=== PATIENT | female | born 1965 | race Caucasian/White ===

== ENCOUNTER 2017-11-08 18:05 | Emergency (ER) | payer OTHER ==
[~2017-11-08] VITALS: Ht 165.1 cm; Wt 54.4 kg
[~2017-11-08 18:05] MED LIST: AMITRIPTYLINE H50 M2 GT; AMOXICILLIN 50500 MG PO; BUTALB-APAP-CA1 EACH PO; CRESTOR10 MG PO; DARVOCET-N 1001 EACH PO; FLAGYL500 MG PO; FLEXERIL PO; GUAIFEN-CODEIN120 ML PO; LOMOTIL TABLET1 EACH PO; MOBIC15 MG PO; MUCINEX TA600 MG/TA2 PO; NORCO 5-325 TA1 EACH PO; PROPRANOLOL 1010 MG PO; PROZAC20 MG PO; RIZATRIPTAN10 MG PO; ROBAXIN 750 MG750 M1 PO; TRAMADOL 50 MG50 MG PO; ZESTRIL5 MG PO; ZOFRAN ODT4 MG DISSOLVE
[2017-11-08] MEDS ORDERED: BENTYL 20 MG TA20 M1 PO (18:15)
[2017-11-08] MEDS ORDERED: CRESTOR5 MG PO (18:15)
[2017-11-08] MEDS ORDERED: NORCO 5-325 TA1 EAC1 PO (18:29)
[2017-11-08 18:39] VITALS: BP 129/88
== END 2017-11-08 18:40 | disposition home or self-care (01) ==
LOC: M.ERS 18:05
DX: S46.911A Strain of unspecified muscle, fascia and tendon at shoulder and upper arm level, right arm, initial encounter (principal); I10 Essential (primary) hypertension; G43.909 Migraine, unspecified, not intractable, without status migrainosus; E78.00 Pure hypercholesterolemia, unspecified; F17.200 Nicotine dependence, unspecified, uncomplicated; X58.XXXA Exposure to other specified factors, initial encounter; Y93.89 Activity, other specified; Y92.89 Other specified places as the place of occurrence of the external cause; Y99.8 Other external cause status

== ENCOUNTER 2018-12-26 13:19 | Emergency (ER) | payer OTHER ==
[~2018-12-26] VITALS: Ht 165.1 cm; Wt 54.4 kg
[~2018-12-26 13:19] MED LIST changes: -AMITRIPTYLINE H50 M2 GT; +AMITRIPTYLINE H50 M2 PO; +BENTYL 20 MG TA20 M1 PO; +CRESTOR5 MG PO; +NORCO 5-325 TA1 EAC1 PO
[2018-12-26 13:46] VITALS: BP 120/66
[2018-12-26] MEDS ORDERED: RIZATRIPTAN10 M1 PO (13:51)
[2018-12-26] MEDS ORDERED: NAPROSYN500 MG PO (13:55)
[2018-12-26] MEDS ORDERED: MEDROLDOSEPACK PO (13:55)
[2018-12-26] MEDS ORDERED: ROBAXIN 750 MG750 M1 PO (13:55)
== END 2018-12-26 14:06 | disposition home or self-care (01) ==
LOC: M.ERS 13:19
DX: M54.16 Radiculopathy, lumbar region (principal); I10 Essential (primary) hypertension; G43.909 Migraine, unspecified, not intractable, without status migrainosus; E78.00 Pure hypercholesterolemia, unspecified; F17.200 Nicotine dependence, unspecified, uncomplicated

== ENCOUNTER 2019-02-08 13:12 | Emergency (ER) | payer OTHER ==
[~2019-02-08] VITALS: Ht 165.1 cm; Wt 53.4 kg
[~2019-02-08 13:12] MED LIST changes: +MEDROLDOSEPACK PO; +NAPROSYN500 MG PO; +RIZATRIPTAN10 M1 PO
[2019-02-08] MEDS ORDERED: ZOFRAN ODT4 MG PO (13:22)
[2019-02-08 14:15] LABS: ABSOLUTE EOSINOPHILS 0.1 thou/uL (0.0-0.7); ABSOLUTE LYMPHOCYTES 1.3 thou/uL (0.8-5.3); ABSOLUTE MONOCYTES 0.4 thou/uL (0.0-1.2); BASOPHILS 0.5 %; EOSINOPHILS 1.4 %; HEMATOCRIT 36.8 % (37.0-47.0); HEMOGLOBIN 12.6 gm/dL (12.0-15.0); LYMPHOCYTES 18.7 %; MCH 30.9 pg (26.0-34.0); MCHC 34.1 g/dL (28.0-37.0); MCV 90.7 fL (80.0-100.0); MONOCYTES 5.8 %; MPV 7.4 fl. (7.2-11.1); NUCLEATED RBCS 0 /100WBC; PLATELET COUNT* 175 thou/uL (150-400); POLYS 73.6 %; RBC 4.06 mil/uL (4.20-5.00); RDW-CV 13.3 % (10.5-14.5); WBC 6.8 thou/uL (4.0-11.0)
[2019-02-08 14:44] LABS: ALBUMIN 3.9 g/dL (3.4-5.0); ALKALINE PHOSPHATASE 124 U/L (46-116); ANION GAP 5 mmol/L (7-16); BUN 19 mg/dL (7-18); CALCIUM 10.2 mg/dL (8.5-10.1); CHLORIDE 101 mmol/L (98-107); CO2 31 mmol/L (21-32); CREATININE 1.3 mg/dL (0.6-1.3); GLUCOSE 103 mg/dL (70-99); LIPASE 150 U/L (73-393); POTASSIUM 3.9 mmol/L (3.5-5.1); SGOT 14 U/L (15-37); SGPT 17 U/L (30-65); SODIUM 137 mmol/L (136-145); TOTAL BILIRUBIN 0.3 mg/dL (<0.1-1.0); TOTAL PROTEIN 7.9 g/dL (6.4-8.2); TROPONIN-I LEVEL <0.06 ng/mL (<0.06)
[2019-02-08 15:26] LABS: URINE BILIRUBIN NEGATIVE (Negative); URINE BLOOD NEGATIVE (Negative); URINE CLARITY CLEAR; URINE COLOR YELLOW; URINE GLUCOSE-RANDOM NEGATIVE (Negative); URINE KETONES NEGATIVE (Negative); URINE LEUKOCYTES-REFLEX TRACE (Negative); URINE NITRITE-REFLEX NEGATIVE (Negative); URINE PROTEIN NEGATIVE (Negative); URINE UROBILINOGEN 0.2 E.U./dl (0.2-1.0)
[2019-02-08 15:38] LABS: SQUAMOUS >10 Many /LPF (0-3)
[2019-02-08 15:39] LABS: BACTERIA-REFLEX 1-9 Few /HPF (None Seen); CRYSTALS None Seen /LPF (None Seen); HYALINE CASTS 0-3 Few /LPF (None Seen); MUCUS None Seen strn/LPF (None Seen); URINE RBC None Seen /HPF (0-2); URINE WBC-REFLEX 0-5 Rare /HPF (0-5)
[2019-02-08] MEDS ORDERED: ONDANSETRON HCL4 M2 PO (16:14)
[2019-02-08 16:26] VITALS: BP 129/74
--- NOTE | 2019-02-08 16:42 | EKG ---
[place] [address] ELECTROCARDIOGRAM REPORT Name: MANISHA LO Room: [facility]#: [id number] Admission: 02/08/19 Attend Phys: Discharge: 02/08/19 Date of : 69 Report #: [id number] THIS REPORT FOR: //name// [facility] ED Test Date: 2019-02-08 Test Time: 13:51:14 Pat Name: MANISHA LO Department: Room: Gender: F [address] Freight: DANNY : 1965 Requested By: Denae Romeo Order Number: [id number] MD: Blake Vo Measurements Intervals [place] Rate: 84 P: 92 [place]: 128 QRS: 88 QRSD: 79 T: 74 QT: 354 QTc: 419 Interpretive Statements Sinus rhythm Biatrial enlargement Anteroseptal infarct, old Compared to ECG 04/13/2015 22:52:15 Atrial abnormality now present Myocardial infarct finding now present Ventricular premature complex(es) no longer present Left bundle-branch block no longer present Electronically Signed On 02-08-2019 16:42:16 CDT by Blake Vo [email or web address] <ELECTRONICALLY SIGNED> By: Blake Vo MD, FAC 02/08/19 1642 1351 1351 Blake Vo MD, [facility] /EPI
== END 2019-02-08 16:27 | disposition home or self-care (01) ==
LOC: M.ERS 13:12
PROVIDERS: Nurse Practitioner Family
DX: K52.9 Noninfective gastroenteritis and colitis, unspecified (principal); J43.9 Emphysema, unspecified; R53.1 Weakness; I10 Essential (primary) hypertension; G43.909 Migraine, unspecified, not intractable, without status migrainosus; F17.210 Nicotine dependence, cigarettes, uncomplicated; Z98.890 Other specified postprocedural states

== ENCOUNTER 2021-10-06 16:34 | Inpatient (IN) | payer OTHER ==
[~2021-10-06] VITALS: Ht 165.1 cm; Wt 49.4 kg
[~2021-10-06 16:34] MED LIST changes: +ONDANSETRON HCL4 M2 PO; +ZOFRAN ODT4 MG PO
[2021-10-06 16:47] VITALS: BP 103/54
[2021-10-06] MEDS ORDERED: ZESTRIL5 MG PO (16:49)
[2021-10-06] MEDS ORDERED: AMITRIPTYLINE H75 M2 PO (16:49)
[2021-10-06 17:19] LABS: HEMATOCRIT 42.7 % (37.0-47.0); HEMOGLOBIN 14.6 gm/dL (12.0-15.0); MCH 30.8 pg (26.0-34.0); MCHC 34.2 g/dL (28.0-37.0); MCV 90.1 fL (80.0-100.0); MPV 8.1 fl. (7.2-11.1); NUCLEATED RBCS 0 /100WBC; PLATELET COUNT* 146 thou/uL (150-400); RBC 4.74 mil/uL (4.20-5.00); RDW-CV 13.3 % (10.5-14.5)
[2021-10-06 17:29] LABS: CALCIUM 8.6 mg/dL (8.5-10.1); CREATININE 2.2 mg/dL (0.6-1.3); POTASSIUM 4.3 mmol/L (3.5-5.1)
[2021-10-06 17:34] LABS: ALBUMIN 2.9 g/dL (3.4-5.0); TOTAL BILIRUBIN 0.4 mg/dL (<0.1-1.0); TOTAL PROTEIN 7.8 g/dL (6.4-8.2)
[2021-10-06 17:41] LABS: INFLUENZA A ANTIGEN Negative (Negative); INFLUENZA B ANTIGEN Negative (Negative)
[2021-10-06 17:57] LABS: ABSOLUTE LYMPHOCYTES 0.7 thou/uL (0.8-5.3); ABSOLUTE MONOCYTES 0.3 thou/uL (0.0-1.2); PLATELET ESTIMATE ADEQUATE
[2021-10-06 22:30] VITALS: BP 96/46
[2021-10-07 02:30] VITALS: BP 108/52
[2021-10-07 06:25] VITALS: BP 135/83
--- NOTE | 2021-10-07 10:39 | EKG ---
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 : 1965 Requested By: Oseas Parks Order Number: [id number] MD: Sameer Ambrose Measurements Intervals [place] Rate: 114 P: 87 VT: 91 QRS: 89 QRSD: 99 T: 69 QT: 299 QTc: 412 Interpretive Statements Sinus tachycardia Atrial premature complexes Right atrial enlargement Minimal ST depression, inferior leads Compared to ECG 02/08/2019 13:51:14 Atrial premature complex(es) now present ST (T wave) deviation now present Sinus rhythm no longer present Myocardial infarct finding no longer present Electronically Signed On 10-07-2021 10:38:51 [employer]OR SERVICES TECHNICIAN by Sameer Ambrose [email or web address] <ELECTRONICALLY SIGNED> By: Sunshine Ambrose MD, [facility] 10/07/21 1038 [id number] 165 Sunshine Ambrose MD, [facility] /EPI
[2021-10-07 11:48] VITALS: BP 110/72
[2021-10-07 15:39] VITALS: BP 137/68
[2021-10-07 20:00] VITALS: BP 116/70
[2021-10-08 07:17] LABS: ABSOLUTE LYMPHOCYTES 0.7 thou/uL (0.8-5.3); ABSOLUTE MONOCYTES 0.3 thou/uL (0.0-1.2); ABSOLUTE NEUTROPHILS 8.1 thou/uL (1.6-8.1); BASOPHILS 0.5 %; LYMPHOCYTES 7.5 %; MCH 30.4 pg (26.0-34.0); MCV 89.4 fL (80.0-100.0); MONOCYTES 3.7 %; MPV 7.5 fl. (7.2-11.1); NUCLEATED RBCS 0 /100WBC; PLATELET COUNT* 175 thou/uL (150-400); POLYS 88.3 %; RBC 4.13 mil/uL (4.20-5.00); RDW-CV 13.8 % (10.5-14.5); WBC 9.2 thou/uL (4.0-11.0)
[2021-10-08 07:28] LABS: HEMOGLOBIN 12.6 gm/dL (12.0-15.0)
[2021-10-08 07:36] LABS: APTT 31.8 Seconds (25.0-31.3); INR 1.1; PROTIME 10.9 Seconds (9.20-11.50)
[2021-10-08 07:42] LABS: ALBUMIN 2.2 g/dL (3.4-5.0); MAGNESIUM 1.8 mg/dL (1.8-2.4); PHOSPHORUS* 2.6 mg/dL (2.5-4.9); POTASSIUM 4.5 mmol/L (3.5-5.1); TOTAL BILIRUBIN 0.3 mg/dL (<0.1-1.0); TOTAL PROTEIN 6.5 g/dL (6.4-8.2)
[2021-10-08 07:46] LABS: CREATININE 0.9 mg/dL (0.6-1.3)
[2021-10-08 08:15] VITALS: BP 124/67; BP 130/86
[2021-10-08 10:06] LABS: ESR (SEDRATE) 98 mm/hr (0-30)
[2021-10-08 10:39] VITALS: BP 130/86
[2021-10-08 12:00] VITALS: BP 129/84
[2021-10-08 13:45] VITALS: BP 138/69; BP 140/70; BP 142/68
[2021-10-08 16:00] VITALS: BP 140/86
[2021-10-08 20:05] VITALS: BP 154/89
[2021-10-09] VITALS: BP 139/88
[2021-10-09 04:00] VITALS: BP 144/89
[2021-10-09 08:50] VITALS: BP 124/87
[2021-10-09 10:39] LABS: ABSOLUTE LYMPHOCYTES 0.4 thou/uL (0.8-5.3); ABSOLUTE MONOCYTES 0.4 thou/uL (0.0-1.2); ABSOLUTE NEUTROPHILS 6.4 thou/uL (1.6-8.1); BASOPHILS 0.1 %; HEMATOCRIT 36.2 % (37.0-47.0); HEMOGLOBIN 12.1 gm/dL (12.0-15.0); LYMPHOCYTES 5.9 %; MCH 30.7 pg (26.0-34.0); MCHC 33.5 g/dL (28.0-37.0); MCV 91.6 fL (80.0-100.0); MONOCYTES 5.6 %; MPV 7.4 fl. (7.2-11.1); NUCLEATED RBCS 0 /100WBC; PLATELET COUNT* 209 thou/uL (150-400); POLYS 88.4 %; RBC 3.95 mil/uL (4.20-5.00); RDW-CV 13.6 % (10.5-14.5); WBC 7.2 thou/uL (4.0-11.0)
[2021-10-09 10:45] LABS: ALBUMIN 2.4 g/dL (3.4-5.0); CALCIUM 9.1 mg/dL (8.5-10.1); CREATININE 0.7 mg/dL (0.6-1.3); TOTAL BILIRUBIN 0.4 mg/dL (<0.1-1.0); TOTAL PROTEIN 6.8 g/dL (6.4-8.2)
[2021-10-09 12:37] VITALS: BP 137/94
[2021-10-09] MEDS ORDERED: PREDNISONE 10 M10 MG PO (13:22)
[2021-10-09] MEDS ORDERED: PROAIR HFA8.5 GM INH (13:22)
[2021-10-09] MEDS ORDERED: TESSALON PERLE100 MG PO (13:22)
[2021-10-09] MEDS ORDERED: LEVOFLOXACIN500 MG PO (13:22)
[2021-10-09 16:15] VITALS: BP 131/96
[2021-10-09 16:48] VITALS: BP 131/96
== END 2021-10-09 17:55 | disposition home or self-care (01) | DRG 177 ==
LOC: M.ERS 16:34 → M.TBA-ER 18:26 → M.ORTHSURG 18:26
PROVIDERS: Emergency Medicine Emergency Medical Services; Internal Medicine; ADMIT Internal Medicine; ATTEND Internal Medicine
PROC: XW13325 Transfusion of Convalescent Plasma (Nonautologous) into Peripheral Vein, Percutaneous Approach, New Technology Group 5 (ICD-10-PCS; principal; 2021-10-08)
DX: U07.1 COVID-19 (principal); J96.01 Acute respiratory failure with hypoxia; N17.0 Acute kidney failure with tubular necrosis; J12.82 Pneumonia due to coronavirus disease 2019; E87.1 Hypo-osmolality and hyponatremia; E86.0 Dehydration; I10 Essential (primary) hypertension; G43.909 Migraine, unspecified, not intractable, without status migrainosus; Z53.29 Procedure and treatment not carried out because of patient's decision for other reasons

== ENCOUNTER → 2021-11-20 | Outpatient (CLI) | payer OTHER ==
[~2021-11-20] MED LIST changes: +AMITRIPTYLINE H75 M2 PO; +LEVOFLOXACIN500 MG PO; +PREDNISONE 10 M10 MG PO; +PROAIR HFA8.5 GM INH; +TESSALON PERLE100 MG PO
[2021-11-20 17:10] LABS: ABSOLUTE BASOPHILS 0.1 thou/uL (0.0-0.2); ABSOLUTE EOSINOPHILS 0.2 thou/uL (0.0-0.7); ABSOLUTE LYMPHOCYTES 1.6 thou/uL (0.8-5.3); ABSOLUTE MONOCYTES 0.5 thou/uL (0.0-1.2); ABSOLUTE NEUTROPHILS 6.9 thou/uL (1.6-8.1); BASOPHILS 0.8 %; EOSINOPHILS 1.8 %; HEMATOCRIT 40.9 % (37.0-47.0); HEMOGLOBIN 13.7 gm/dL (12.0-15.0); LYMPHOCYTES 17.4 %; MCH 31.1 pg (26.0-34.0); MCHC 33.4 g/dL (28.0-37.0); MCV 93.1 fL (80.0-100.0); MONOCYTES 5.3 %; MPV 6.9 fl. (7.2-11.1); NUCLEATED RBCS 0 /100WBC; PLATELET COUNT* 242 thou/uL (150-400); POLYS 74.7 %; RDW-CV 13.5 % (10.5-14.5); WBC 9.2 thou/uL (4.0-11.0)
[2021-11-20 17:20] LABS: CREATININE 0.9 mg/dL (0.6-1.3)
[2021-11-20 17:22] LABS: APTT 27.9 Seconds (25.0-31.3); INR 1.1; PROTIME 10.8 Seconds (9.20-11.50)
== END ==
LOC: M.LAB 16:20
PROVIDERS: ATTEND Internal Medicine Critical Care Medicine
DX: J96.11 Chronic respiratory failure with hypoxia (principal); U07.1 COVID-19; J43.9 Emphysema, unspecified; R00.0 Tachycardia, unspecified; I80.9 Phlebitis and thrombophlebitis of unspecified site; R91.8 Other nonspecific abnormal finding of lung field

== ENCOUNTER → 2021-12-05 | Outpatient (CLI) | payer OTHER | LOC: M.CT 12:30 | PROVIDERS: ATTEND Internal Medicine Critical Care Medicine | DX: U07.1 COVID-19 (principal); J43.9 Emphysema, unspecified; R06.02 Shortness of breath; R91.8 Other nonspecific abnormal finding of lung field; J96.11 Chronic respiratory failure with hypoxia; I80.9 Phlebitis and thrombophlebitis of unspecified site; R00.0 Tachycardia, unspecified; I31.3 Pericardial effusion (noninflammatory); I82.4Z2 Acute embolism and thrombosis of unspecified deep veins of left distal lower extremity ==